=== PATIENT | female | born 1995 | race Native Hawaiian/Other Pacific Islander ===

== ENCOUNTER 2019-08-20 10:35 | Emergency (ER) | payer OTHER, SELFPAY ==
[2019-08-20 11:30] VITALS: BP 129/67; PULSE 67; RESP 18; TEMP 36.5; O2SAT 99; BMI 22.8
--- NOTE | 2019-08-20 11:59 | ED_ITS ---
HPI - Skin/Abscess/Foreign Bdy <KARLO Escobar - Last Filed: 08/20/19 16:09> General Chief complaint: Skin/Abscess/Foreign Body Stated complaint: both lower legs rash/itching/oozing x4 days Time Seen by Provider: 08/20/19 11:32 Source: patient Mode of arrival: Family Vehicle Limitations: no limitations History of Present Illness HPI narrative: The patient is a 23-year-old female nonsmoker who denies pertinent medical history presents with a chief complaint of a rash on lower legs after having laser hair removal done several days ago. She states that she had a done 4 days ago, she has never had it to that area before, and she was dry shaved prior to the procedure. She states that after that her skin became bumpy and itchy. She denies any fevers nausea vomiting or diarrhea. She has not taken anything for the rash or itch. Related Data Home Medications Medication Instructions Recorded Confirmed citalopram [Celexa] 20 mg PO QDAY #0 11/04/17 rizatriptan [Maxalt] 10 mg PO QDAY PRN #0 11/04/17 Allergies Allergy/AdvReac Type Severity Reaction Status Date / Time No Known Allergies Allergy Uncoded 08/20/19 11:37 Review of Systems <KARLO Escobar - Last Filed: 08/20/19 16:09> Review of Systems Narrative: GENERAL: Denies chills, fatigue, malaise, fever, sweats. HEENT: Denies sinus pain, ear pain, sore throat, difficulty swallowing, dizz iness. RESPIRATORY: Denies dyspnea, cough, wheezing, hemoptysis, sputum. CARDIOVASCULAR: Denies chest pain, palpitations, orthopnea, edema, GASTROINTESTINAL: Denies nausea, vomiting, abdominal pain, diarrhea, constipation, melena. : Denies dysuria, frequency, incontinence, hematuria, urinary retention. MUSCULOSKELETAL: denies weakness, joint pain, or bony pain SKIN: See HPI NEUROLOGIC: Denies weakness, headache, numbness, change in speech, confusion, seizures, incoordination. PSYCHIATRIC: No concerning psychosocial issues. 12 point review of systems is negative except for those stated above Patient History <KARLO Escobar - Last Filed: 08/20/19 16:09> Social History Smoking Status: Never smoker alcohol intake frequency: a few times a week Substance Use Type: does not use Exam <KARLO Escobar - Last Filed: 08/20/19 16:09> Narrative Exam Narrative: GENERAL: This is a well-nourished, well-developed patient, in no acute distress HEAD: Atraumatic. Normocephalic. No temporal or scalp tenderness. EYES: Pupils equal round and reactive. Extraocular motions intact. No scleral icterus. No injection or drainage. ENT: Nose without bleeding, purulent drainage or septal hematoma. Throat without erythema, tonsillar hypertrophy or exudate. Uvula midline. Airway patent. NECK: Trachea midline. No JVD or lymphadenopathy. Supple, nontender, no meningeal signs. CARDIOVASCULAR: Regular rate and rhythm RESPIRATORY: No cough. No increased respiratory effort. No accessory muscle use EXTREMITIES: See skin exam. Bilateral pedal pulses intact. BACK: Nontender without deformity or crepitance. No flank tenderness. NEURO: AOx3. SKIN: Diffuse papular slightly erythematous rash bilateral lower extremities. No drainage noted. No swelling noted. Normal ribs noted. Initial Vital Signs Initial Vital Signs: Vital Signs Temperature 97.7 F 08/20/19 11:30 Pulse Rate 67 08/20/19 11:30 Respiratory Rate 18 08/20/19 11:30 Blood Pressure 129/67 08/20/19 11:30 Pulse Oximetry 99 08/20/19 11:30 <Destiney Roy DO - Last Filed: 08/23/19 07:11> Initial Vital Signs Initial Vital Signs: Vital Signs Temperature 97.7 F 08/20/19 11:30 Pulse Rate 67 08/20/19 11:30 Respiratory Rate 18 08/20/19 11:30 Blood Pressure 129/67 08/20/19 11:30 Pulse Oximetry 99 08/20/19 11:30 Course <KARLO Escobar - Last Filed: 08/20/19 16:09> Vital Signs Vital signs: Vital Signs - 8 hr 08/20/19 11:30 Temperature 97.7 F Pulse Rate 67 Respiratory Rate 18 Blood Pressure 129/67 Pulse Oximetry 99 <Destiney Roy DO - Last Filed: 08/23/19 07:11> Vital Signs Vital signs: Vital Signs - 8 hr 08/20/19 11:30 Temperature 97.7 F Pulse Rate 67 Respiratory Rate 18 Blood Pressure 129/67 Pulse Oximetry 99 MDM - Skin/Abscess/Foreign Bdy <SOFY Escobar-BC - Last Filed: 08/20/19 16:09> [facility] Narrative Medical decision making narrative: The patient is a 23-year-old female who presents with a chief complaint of a rash on bilateral lower extremities after laser hair removal and dry shaving 4-5 days ago. She denies any fevers, vomiting, diarrhea or signs of systemic illness. She is afebrile and hemodynamically stable throughout her stay in the emergency department. Her exam indicates a rash, likely related to the dry shaving. I discussed at length and during that her skin is well hydrated, use of hydrocortisone, as well as antihistamines as needed for itch. She has followed up with the provider who did the laser hair removal, and she states that she has planned follow-up with them next week. Discussed at length follow up with primary care provider for new or worsening symptoms. Discussed going back to the emergency department for any acute concerns such as signs of systemic illness. Patient has no questions or concerns upon discharge and states understanding return precautions as well as follow-up care. Discharge Plan Departure Patient Disposition: Home Clinical Impression: Rash and nonspecific skin eruption Discharge Date/Time: 08/20/19 12:10 Instructions: DI for Contact Dermatitis Activity Restrictions/Additional Instructions: I believe that your rash may be related to the procedure that you had for laser hair removal. I suggest the following treatment: Eucerin from a tub to help hydrate your skin, you can also try hydrocortisone cream, or Benadryl cream Oral Benadryl to help with the itching this is an H1 helio. You can also try an H2 helio which is a different kind of antihistamines such as Pepcid. Please be sure to keep her skin hydrated. Please follow up with primary care provider in the next few days. Please come back to the emergency department for any acute concerns Prescriptions: No Action citalopram [Celexa] 20 MG tablet 20 mg PO QDAY Qty: 0 RF: 0 rizatriptan [Maxalt] 10 MG tablet 10 mg PO QDAY PRNQty: 0 RF: 0 Referrals: [facility] [Provider Group]
== END 2019-08-20 12:10 | disposition home or self-care (01) ==
PROVIDERS: Emergency Provider Nurse Practitioner Family
DX: R21 Rash and other nonspecific skin eruption (principal)
CPT/HCPCS: 99282